=== PATIENT | male | born 1955 | race Caucasian/White ===

== ENCOUNTER 2019-01-16 10:10 | Inpatient (IN) | payer MEDICARE, SELFPAY ==
[2019-01-12 08:51] VITALS: BMI 25.0
[2019-01-16] VITALS (22 sets, daily range): BP systolic 110–150; BP diastolic 58–92; PULSE 68–92; RESP 7–18; TEMP 35.9–36.4; O2SAT 91–99; BMI 25.0
[2019-01-16] MEDS: LACTATED RINGERS 1,000 ML 42 ML IV ×2 (10:53→13:05)
--- NOTE | 2019-01-16 11:01 | PM.PREOP ---
Pre-operative Note Interval Note History & Physical reviewed/Exam performed by Physician: Yes Changes to H&P: No
[2019-01-16] MEDS: CEFAZOLIN 2 GM/100 ML FROZ.PIGGY IV ×2 (11:22→18:32)
--- NOTE | 2019-01-16 11:56 | SUR.OPER ---
Prone on spine table, head in foam head support, padded chest and pelvic supports, gel pad at knees, lower legs supported by pillows; nipples, genitalia and toes free of pressure, arms secured on foam padded arm boards at <90 degrees abduction. Tape over blanket at thigh secured to table.
[2019-01-16] MEDS: BUPIVACAINE LIPOSOME 266 MG/20 ML VIAL INJ (12:00)
[2019-01-16] MEDS: BUPIVACAINE 0.25% W/ EPI VIAL 30 ML INJ (12:01)
[2019-01-16] MEDS: ACETAMINOPHEN IV 1,000 MG/100 ML VIAL 400 MG IV (12:38)
--- NOTE | 2019-01-16 13:36 | PM.OP.1 ---
Operative Date/Time/Diagnoses Date of procedure: 01/16/19 Time of procedure: 11:36 Pre-op diagnosis: 1. L4-5, L5-S1 spinal stenosis 2. L4-5 spondylosis with radiculopathy Post-op diagnosis: same Procedure & Clinicians Procedure: 1. L4-5 Postero-lateral and posterior interbody fusion 2. L4-5 interbody cage placement. 3. L4-5 decompressive laminectomy with bilateral facetecomies 4. L4-5 Posterior non-segmental instrumentation 5. L5-S1 left hemilaminectomy 6. [place] of bone marrow from iliac crest 7. Utilization of microsurgical technique and operating microscope Same procedure as scheduled: Yes Indications: Patient has been having chronic back pain and worsening lumbar radiculopathy. Patient failed multiple conservative management with worsening pain weakness and numbness in her lower extremity. Patient has been having difficulty performing activity of daily living. After discussing risks benefits of treatment options, patient elected proceed with surgery. Surgeon: Juan Jose Monterroso Attorney At Law: Ana Morse'Brien Click Yes if Unassisted: No Anesthesia Type: General Operative Notes Closure Type: primary Specimen(s): none sent Prosthetic devices, grafts, tissues, transplants, or devices: Globus revolve screws, Rise cages Estimated Blood Loss (mL): 50 Blood products transfused: none Procedure in detail: Patient was seen in the preoperative area. Risks and benefits of the surgery was discussed with the patient. Informed consent was obtained from the patient and placed in the chart. Surgical site was marked. Patient was taken to the operative room. General anesthesia was administered. Prophylactic antibiotic was given to the patient less than 30 min before the incision was made. Patient was placed into a prone position on the Ariel table. Patient's back was then prepped and draped in the sterile fashion. Time-out was performed at this time. Using AP and lateral C-arm imaging the interval between L4-5 L5-S1 was identified and marked on patient's back. A 2 inch incision 2 in from midline was made on the left side first. The fascia was incised in line with skin incision. Globus MARS retractors was placed inside the incision and docked onto the L4 lamina. Using microsurgical technique and operating microscope, a L4 laminectomy and L4-5 facetectomy was performed using a Kerrison rongeur. The L4 and L5 neuroforamen was found to be significantly stenotic. One in 80% of the facet joint was removed in the process of decompression bilaterally which rendered the L4-5 level grossly unstable requiring a fusion procedure. The disc space at L4-5 was identified. And a total diskectomy was performed at L4-5 level. The endplates were decorticated using a rasp and shaver. The total diskectomy and decortication was performed at L4-5 level in order to to accomplish a L4-5 fusion. The local bone from the laminectomy and facetectomy was saved for local bone grafting. After the total diskectomy and decortication was completed, Globus viacell bone graft material was combined with local bone that was harvested earlier. At this time, a separate skin is incision was made over the iliac crest. A Jamshidi needle was inserted into the iliac crest through a separate skin incision. 5 cc of bone marrow aspiration was obtained through the separate skin incision using a Jamshidi needle from the iliac crest. The bone marrow aspiration was combined with local bone and the via cell bone grafting material. The bone grafting material was placed into the L4-5 interbody space along with a expandable cage. The cage was expanded to its maximum height using the torque limiting screwdriver. At this time the MARS retractor was redirected over the L5 lamina. Using microsurgical technique and operating microscope, a L5-S1 heminectomy was performed using the Kerrison rongeur. The ligamentum flavum was also resected at the side of the hemilaminectomy for further decompression of the epidural space. At this time a mirror image incision was made on the right side. The fascia was incised in line with the skin incision. Globus MARS retractor was inserted and docked onto the L4-5 posterolateral gutter. Using the power drill, posterior-lateral decortication was performed at L4-5 level until bleeding cortical bone was identified. The remaining bone grafting material was placed into the L4-5 posterior lateral gutter he order to accomplish posterolateral fusion at the L4-5 level. Using the double C-arm technique, pedicle screws were placed into the L4 and L5 pedicles bilaterally. This was done by placing the Jamshidi needle into the pedicles, then placing the guidewires over the Jamshidi needle, and finally placing the cannulated screws over the guidewires bilaterally. After the pedicle screws were placed, 2 titanium rods was locked into the heads of the pedicle screws using locking caps and torque limiting screwdriver. After all the hardware was placed, and confirmed with AP and lateral C-arm imaging, the wound was then irrigated with sterile normal saline and packed with Ray-Candelaria gauze for 3 min to accomplish hemostasis. After the gauze was removed the deep fascia was closed with #1 Vicryl suture. The subcutaneous layer was closed with 2-0 Vicryl. The skin was closed with skin judy. Patient tolerated the procedure well. There were no complications. Complications: none Condition: stable Disposition: PACU Plan for aftercare: Admit to inpatient hospital
--- NOTE | 2019-01-16 13:43 | DI.RAD.S_ITS ---
PROCEDURE: XR LUMBAR SPINE 2-3V INDICATIONS: L4-5 TLIF TECHNIQUE: 2 intraoperative fluoroscopic views of the lumbar spine were acquired. COMPARISON: None. FINDINGS: Intraoperative fluoroscopic images of lumbar spine shows transpedicular fusion at L4-5 level with intervertebral spacer placement at L4-5 level. Surgical screw is also noted anteriorly at S1 level. IMPRESSION: Fluoroscopy guidance was provided intraoperatively for transpedicular fusion at L4-5 level. Dictated by: Adin Tejada M.D. on 01/16/2019 at 14:02 Approved by: Adin Tejada M.D. on 01/16/2019 at 14:04
[2019-01-16] MEDS: fentaNYL 100 MCG/2 ML INJ IV ×2 (14:03→14:14)
[2019-01-16] MEDS: HYDROMORPHONE 2 MG INJ 0.5 MG IV ×7 (14:06→15:13)
--- NOTE | 2019-01-16 14:23 | SUR.PHASEI ---
Report given to MARIA ALEJANDRA Juares. Pt in stable condition, VSS. Transferred care of pt to MARIA ALEJANDRA Juares at this time.
[2019-01-16] MEDS: OXYCODONE IR 5 MG TABLET PO (15:01)
--- NOTE | 2019-01-16 16:00 | SUR.PHASEI ---
Pt transferred to room 218 via bed with all belongings. Pt's last vital signs stable with pain well controlled. Report given to MARIA ALEJANDRA Jordan prior to pt's transfer. MARIA ALEJANDRA Dupont assuming care of pt so report reviewed with her upon arrival to room 218. Assessed pt's dressing with and answered any questions for Kiah. I will contact pt's , Xi, to let her know that the pt has been transferred.
[2019-01-16] MEDS: HYDROMORPHONE 2 MG TABLET PO (16:55)
[2019-01-16] MEDS: SODIUM CHLORIDE 0.9% 1,000 ML 100 ML IV (16:55)
[2019-01-16] MEDS: hydrOXYzine pamoate 25 MG CAPSULE PO (16:55)
[2019-01-16] MEDS: OXYCODONE IR 10 MG TABLET PO (18:32)
--- NOTE | 2019-01-16 20:00 | PC.ADMIT ---
[address] Admission Note: The patient,Dipak Betts II,63 y/o, was given written information regarding hospital policies, unit procedures and contact persons. Patient's smoking status: Former smoker. Vital Signs - 8 hr 01/16/19 13:39 01/16/19 13:44 01/16/19 13:49 Temperature 97.4 F L Pulse Rate 79 80 92 H Respiratory Rate 7 L 9 L 9 L Blood Pressure 110/64 118/69 150/92 H Pulse Oximetry 91 91 97 01/16/19 13:54 01/16/19 13:59 01/16/19 14:04 Temperature Pulse Rate 92 H 91 H 83 Respiratory Rate 12 12 12 Blood Pressure 129/80 128/86 137/72 Pulse Oximetry 97 98 98 01/16/19 14:09 01/16/19 14:14 01/16/19 14:19 Temperature 96.8 F L Pulse Rate 87 84 84 Respiratory Rate 15 9 L 11 L Blood Pressure 132/83 131/77 132/82 Pulse Oximetry 98 98 98 01/16/19 14:34 01/16/19 14:49 01/16/19 15:04 Temperature 97.0 F L Pulse Rate 86 86 79 Respiratory Rate 13 12 11 L Blood Pressure 138/86 138/83 143/77 H Pulse Oximetry 95 94 95 01/16/19 15:19 01/16/19 15:34 01/16/19 15:43 Temperature Pulse Rate 68 82 71 Respiratory Rate 10 L 12 14 Blood Pressure 111/68 113/62 111/58 L Pulse Oximetry 97 99 99 01/16/19 15:50 01/16/19 16:20 01/16/19 16:50 Temperature 96.6 F L 97.5 F L 97.0 F L Pulse Rate 76 86 92 H Respiratory Rate 16 18 18 Blood Pressure 144/61 H 130/80 148/90 H Pulse Oximetry 99 96 97 01/16/19 17:50 Temperature 97.5 F L Pulse Rate 76 Respiratory Rate 17 Blood Pressure 120/62 Pulse Oximetry 96
--- NOTE | 2019-01-16 20:00 | PC.NURSE ---
evening shift note- Patient arrived to room from pacu via bed. Patient alert and oriented and hard of hearing. Admission questiobns completed, home medications reviewed, and physical assessment done. patient oriented to bed and bed controls, room, bathroom, lights, menu, phone, and call velazquez/tv remote. Safety measures in place. patient agrees to call for assistance as needed. will continue to monitor
[2019-01-16] MEDS: DOCUSATE 100 MG CAPSULE PO (20:33)
[2019-01-16] MEDS: SENNOSIDES 8.6 MG TABLET 17.2 MG PO (20:33)
[2019-01-16] MEDS: HYDROMORPHONE 1 MG INJ 0.5 MG IV (20:33)
[2019-01-17] MEDS: OXYCODONE IR 10 MG TABLET PO ×6 (00:01→20:54)
[2019-01-17 00:59] VITALS: BP 113/62; PULSE 81; RESP 15; TEMP 36.5; O2SAT 95
--- NOTE | 2019-01-17 01:12 | PC.NURSE ---
Assumed care of pt at 2130 on 01/16/19. Pt resting in bed during bedside hand-off. IVF infusing per orders. Pt reports analgesics have been effectively treating post-op pain. Drsg with reinforced on demetrice shift has no visual drainage since it was reinforced. CMS+. Refused scd's for the night. States I can't sleep with them on. Bed alarm on. Calling appropriately for needs.
[2019-01-17] MEDS: CEFAZOLIN 2 GM/100 ML FROZ.PIGGY IV (02:53)
[2019-01-17] MEDS: SODIUM CHLORIDE 0.9% 1,000 ML 100 ML IV (02:53)
[2019-01-17 05:15] VITALS: BP 115/73; PULSE 71; RESP 16; TEMP 36.5; O2SAT 99
[2019-01-17 05:31] LABS: Hematocrit 41.2 % (41-53); Hemoglobin 13.5 g/dL (13.5-17.5)
--- NOTE | 2019-01-17 08:18 | PM.PNPO.1 ---
Subjective Date Patient Seen: 01/17/19 Time Patient Seen: 08:18 Interval history: POD #1 status post L4-5 TLIF, and L5-S1 hemilaminectomy with Dr. Monterroso. Patient had some pain control issues last night stating most of his pain was in his low back. He notes a significant improvement on the numbness subsiding in his bilateral legs. He has been urinating well on his own. He has not been up with PT yet. Exam Vital Signs (past 8 hours): - 01/17/19 00:59 01/17/19 05:15 Temperature 97.7 F 97.7 F Pulse Rate 81 71 Respiratory Rate 15 16 Blood Pressure 113/62 115/73 Pulse Oximetry 95 99 Oxygen Delivery Method Room Air Oxygen Flow Rate 2 Narrative Exam Narrative: Patient lying in bed in no acute distress. He is alert and oriented x3. Calves are soft, compressible, nontender bilaterally. Sensation intact light touch throughout bilateral lower extremities. Pulses are symmetrical. He is able to actively dorsiflex plantar flex. Objective Labs Result Diagrams: 01/17/19 05:09 Labs: Laboratory Results - last 24 hr 01/17/19 05:09 Hgb 13.5 Hct 41.2 Assessment & Plan Post-op (1) S/P lumbar fusion: Current Visit: Yes Status: Acute Postoperative Procedures Operation Date: 01/16/19 07:45 Actual Procedures Side Surgeon p L5-S1 hemilaminectomy, L4-5 TLIF w/posterior instru Juan Jose Monterroso MD Patient will mobilize with PT today. He is instructed no excessive bending, lifting, or twisting. Continue current pain control. He has had difficulty taking Tylenol in the past but would like to try taking it today. Patient may discharge home today if he is mobilizing safely and pain adequately controlled. If he is not, then he will likely discharge home tomorrow. Quality VTE Deep Vein Thrombosis/Pulmonary Embolism Present on Admission: No
[2019-01-17 08:28] VITALS: BP 117/76; PULSE 89; RESP 16; TEMP 36.2; O2SAT 100
[2019-01-17] MEDS: DOCUSATE 100 MG CAPSULE PO (09:04)
--- NOTE | 2019-01-17 09:30 | PT.IIE ---
Current Diagnoses Other spondylosis with radiculopathy, lumbar region (01/16/19) Spinal stenosis, lumbar region without neurogenic claudication (01/16/19) Arthrodesis status (01/16/19) Surgery Performed Operation Date: 01/16/19 07:45 Actual Procedures p L5-S1 hemilaminectomy, L4-5 TLIF w/posterior annamaria Monterroso MD Surgical History (Last Updated 01/13/19 @ 08:10 by Sana Kimbrough RN) History of ankle surgery (Acute) History of lumbar fusion (Acute ~2004) Hx of tonsillectomy (Acute) S/P cervical spinal fusion (Acute ~2016) Medical History (Last Updated 01/13/19 @ 08:10 by Sana Kimbrough RN) Arthritis (Acute) Clavicle fracture (Acute) DDD (degenerative disc disease) (Acute) Depression (Acute) Fatty liver (Acute) Former smoker (Acute) Numbness and tingling (Acute) Pancreatic abnormality (Acute) Sciatica (Acute) Physical Therapy Inpatient Evaluation/Re-Eval M1 PT/OT-IP Prior Functional Status Start: 01/17/19 11:55 Freq: NEEDED Status: Active Protocol: Document 01/17/19 09:30 AB (Rec: 01/17/19 12:05 AB [id number]) Medical Review Prior Functional Status Medical History Reviewed Yes Communication able to make needs known Mobility and Gait stated that he is independent with all mobilities and ambulation without AD Social History Household Members spouse family Living Arrangements House Number of Floors (Floors) One Floor Number of Stairs To Enter/Railing? 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 PT-IP Current Condition Start: 01/17/19 11:55 Freq: NEEDED Status: Active Protocol: Document 01/17/19 09:30 AB (Rec: 01/17/19 12:05 AB [id number]) Physical Therapy Current Condition Current Condition Evaluation Date 01/17/19 Treatment Diagnosis s/p L4-5 fusion, L4-S1 L hemilami; difficulty in walking Onset Date 01/16/19 Precautions Lumbar Precautions Log Roll No Twisting Limit Bending Lifting Restriction of 10 lbs Gait Belt above Incisional Area M3 PT-IP Subjective Start: 01/17/19 11:55 Freq: NEEDED Status: Active Protocol: Document 01/17/19 09:30 AB (Rec: 01/17/19 12:05 [id number]) Subjective Physical Therapy Visit Type Type Initial Evaluation Visit Start Time 09:30 Visit Stop Time 10:03 Total Visit Minutes 33 Number of MARKETING COMMUNICATIONS COORDINATOR Visits 0 Physical Therapy Visit Comments Patient Comments pt agreeable to do PT Patient Goals to go home Therapy Pain Assessment Pain When Pain Assessed At Rest Pain Present Pain Present Pain Reported Location Lower Back Intensity 8 Scale Used Numeric (1 - 10) Pain Behaviors Facial Grimacing Guarding Pain Management Techniques Apply Cold Re-positioning Timing of Activity with Medications M4 PT-IP Mobility and Gait Start: 01/17/19 11:55 Freq: NEEDED Status: Active Protocol: Document 01/17/19 09:30 AB (Rec: 01/17/19 12:05 [id number]) PT-Bed Mobility Assessment Rolling Type of Rolling Log Rolling Level of Assist Standby Assistance Supine to Sit Supine to Sit Standby Assistance PT-Transfer Assessment Sit to and From Stand Sit to and from Stand Maximum Assistance 1 Person Assistance Equipment Transfer Assistive Device Gait Belt Front Wheeled Walker Orthotic/Prosthetic Devices or Brace: No Transfers Transfer Destination Chair Transfer Technique pt ambulated to the toilet using FWW Transfer Ability Level of Assist Moderate Assistance Maximum Assistance Gait Assessment Gait Gait Assistance Required: Moderate Assistance Maximum Assistance Distance (Feet) 12 Able to Maintain Weight Bearing Status Yes During Gait Assistive Devices Assistive Device Gait Belt Front Wheeled Walker Orthotic/Prosthetic Devices or Brace: No Gait Deviations General Gait Pattern Antalgic Decreased Stride Length Decreased Feet Clearance Factors Limiting Gait Function Factors Limiting Gait Function Decreased Activity Tolerance Decreased Strength Limited Range of Motion Pain Poor Balance Comments Gait Comments pt completed ambualtion using FWW ~ 12 ft requiring mod to max A and max cues. pt presents with usnteady gait and pt with c/o increase pain. pt pushing heavily on BLE for support through the FWW. PT-Balance Assessment Sitting Balance and Reactions Static Sitting Balance Ability Good Dynamic Sitting Balance Ability Fair Standing Balance and Reactions Static Standing Balance Ability Fair Dynamic Standing Balance Ability Poor Device Used FWW M5 PT-IP Objective Assessments Start: 01/17/19 11:55 Freq: NEEDED Status: Active Protocol: Document 01/17/19 09:30 AB (Rec: 01/17/19 12:05 AB [id number]) Orientation Orientation/Cognition Level of Alertness Alert Orientation Name Age Birthday Place Situation Gross Range of Motion Lower Extremity ROM Assessment Within Functional Limits Strength Lower Extremity Strength Assessment Bilaterally Impaired Hip 4-/5 Knee 4-/5 Ankle 4/5 Coordination Assessment Gross Coordination Gross Coordination WNL Muscle Tone Muscle Tone WNL Yes M6 PT-IP Treatment Start: 01/17/19 11:55 Freq: NEEDED Status: Active Protocol: Document 01/17/19 09:30 AB (Rec: 01/17/19 12:05 AB [id number]) Physical Therapy Treatment Education Education Provided Precautions Weight Bearing Status Post-Op Packet Safety M7 PT-IP Assessment and Plan Start: 01/17/19 11:55 Freq: NEEDED Status: Active Protocol: Document 01/17/19 09:30 AB (Rec: 01/17/19 12:05 AB [id number]) PT Summary Assessment and Plan Potential Rehabilitation Potential Fair Status of Condition at Evaluation Evolving Summary Impairments Pain ROM Strength Balance Coordination Sensation Tone Cognition Bed Mobility Transfers Gait Activity Tolerance Assessment Summary pt requiring mod to max A with mobility at this time. d/c plan depending on progress and if spouse will be able to safely assist pt at home. will continue to assess. Goals Bed Mobility Goal Standby Assistance Transfer Goal Standby Assistance Front Wheeled Walker Gait Goal Standby Assistance Front Wheel Walker Gait Distance 150 Other Goals up/down 2 steps without rails CGA Days to Meet Goals 5 Frequency of Treatment Frequency Of Treatment Twice a Day Treatment Plan Physical Therapy Treatment Plan Bed Mobility Training Transfer Training Gait Training Therapeutic Exercise Balance Retraining Post Op Education Discharge Planning Hot or Cold Pack Neuromuscular Re-ed Coordination Retraining Manual Therapy Recommendations To Nursing Amount of Assist Needed 1 Person Assist Discharge Recommendations PT Discharge Recommendations Home with Assistance SNF Rehab Other Discharge Recommendations SNF vs home with assistance
--- NOTE | 2019-01-17 09:56 | CM.DANOTE ---
Addendum entered by Debora Haas LPN 01/17/19 10:08: Met with pt as planned. He had just finished working with PT Chasidy and OT was now in process of beginning her eval. Pt at this point in needing a great deal of assist and it appears he will not be going home today. Pt does have some family help at home initially and his intent is to d/c to that setting. Had brief discussion re his options under Medicare IF this should be needed. Pt states he is confident he will be able to do fine at home but not today. He is aware that [facility] left the d/c date open. P: check in tomorrow and follow prn for needs. Original Note: Discharge Planning/Care Management DCP: assessment: case received, EMR reviewed and discussed case in team rounds. Pt is a 63 year old male who admitted yesterday for a planned spinal surgery: Surgeon: Dr. Monterroso. Payer: Medicare PCP: listed as [facility] PT and OT are ordered. Pt has not worked yet with either discipline and has not been out of bed yet. A d/c order is in from [facility] but review of same shows possible d/c Saturday or Saturday. P: will check in with pt for introduction of self and role. Will confer with therapists and follow prn for any d/c needs. CM Discharge Assessment Start: 01/17/19 09:55 Freq: Status: Active Protocol: Document 01/17/19 09:55 ITV (Rec: 01/17/19 09:56 ITV [id number]) Discharge Planning Assessment Advance Directives? No Advance Directives on File No History Provided By Patient Medical Record Prior Living Arrangements House Household Members spouse family Whiteboard Updated in Patient Room with Yes name and ext. # of Furnace Packer Review Status In Process Next Review Type Continued Stay Review
[2019-01-17 11:10] VITALS: BP 122/82; PULSE 104; RESP 18; TEMP 36.5; O2SAT 94
--- NOTE | 2019-01-17 13:06 | OT.IP.EVAL ---
Current Diagnoses Other spondylosis with radiculopathy, lumbar region (01/16/19) Spinal stenosis, lumbar region without neurogenic claudication (01/16/19) Arthrodesis status (01/16/19) Surgery Performed Operation Date: 01/16/19 07:45 Actual Procedures p L5-S1 hemilaminectomy, L4-5 TLIF w/posterior annamaria Monterroso MD Past Medical History (Last Updated 01/13/19 @ 08:10 by Sana Kimbrough, RN) Arthritis (Acute) Clavicle fracture (Acute) DDD (degenerative disc disease) (Acute) Depression (Acute) Fatty liver (Acute) Former smoker (Acute) Numbness and tingling (Acute) Pancreatic abnormality (Acute) Sciatica (Acute) Surgical History (Last Updated 01/13/19 @ 08:10 by Sana Kimbrough RN) History of ankle surgery (Acute) History of lumbar fusion (Acute ~2004) Hx of tonsillectomy (Acute) S/P cervical spinal fusion (Acute ~2015) Occupational Therapy Inpatient Evaluation/Re-Eval M1 PT/OT-IP Prior Functional Status Start: 01/17/19 12:41 Freq: NEEDED Status: Active Protocol: Document 01/17/19 12:41 [facility] (Rec: 01/17/19 13:06 [facility] [id number]) Medical Review Prior Functional Status Medical History Reviewed Yes Communication able to make needs known Mobility and Gait stated that he is independent with all mobilities and ambulation without AD Activities of Daily Living and IADL's Independent with increased time and did not use a device for any needs. 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 Pt now realizing that he will need to be off work longer. Social History Household Members spouse family Living Arrangements House Number of Floors (Floors) One Floor Number of Stairs To Enter/Railing? 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 OT-IP Current Condition Start: 01/17/19 12:41 Freq: Status: Active Protocol: Document 01/17/19 12:41 [facility] (Rec: 01/17/19 13:06 [facility] [id number]) Occupational Therapy Current Condition Current Condition Evaluation Date 01/17/19 Treatment Diagnosis Spinal Stenosis Diagnosis Onset Date 01/16/19 Post Operative Precautions Lumbar Precautions Log Roll No Twisting Limit Bending Lifting Restriction of 10 lbs Gait Belt above Incisional Area M3 OT- IP Subjective and Pain Start: 01/17/19 12:41 Freq: Status: Active Protocol: Document 01/17/19 12:41 [facility] (Rec: 01/17/19 13:06 [facility] [id number]) OT- Subjective Occupational Therapy Visit Type Type Initial Evaluation Visit Start Time 09:30 Visit Stop Time 10:23 Total Visit Minutes 53 Occupational Therapy Visit Comments Patient Comments Pt agreeable to get up for therapy. Patient/Caregiver Goals Pt wanting to go home and not open to going to skilled rehab at this time. OT Pain Assessment Pain When Pain Assessed During Mobility Pain Present Pain Present Pain Reported Location Lower Back Intensity 8 M4 OT- IP ADL's Start: 01/17/19 12:41 Freq: Status: Active Protocol: Document 01/17/19 12:41 [facility] (Rec: 01/17/19 13:06 [facility] [id number]) OT ADL-Dressing General Eval Lower Body Dressing Ability Maximum Assistance Areas Needing Assistance Socks Comments OT Dressing Comments Able to educated and show pt use of track rider and sock aid for LB dressing needs. Pt able to demonstrate good understanding and safety. Pt looking to get track rider and sock aid. Pt already has long handled sponge at home. Pt given long handled shoe horn. OT ADL-Bathing Comments OT Bathing Comments Pt would benefit from shower chair in the walk in shower at this time, in addition may have to use FWW in the shower as does not have any grab bars in the shower. Pt has HHSP. Pt states may have an elevated toilet seat at home. M5 OT- IP IADL's Start: 01/17/19 12:41 Freq: Status: Active Protocol: Document 01/17/19 12:41 [facility] (Rec: 01/17/19 13:06 [facility] [id number]) OT-Instrumental Activities of Daily Living Meal Preparation Meal Preparation Comments Pt's to assist. Forensic Toxicologist Forensic Toxicologist Comments Pt's to assist. M6 OT- IP Functional Cognition Start: 01/17/19 12:41 Freq: Status: Active Protocol: Document 01/17/19 12:41 [facility] (Rec: 01/17/19 13:06 [facility] [id number]) Cognitive Factors Limiting Selfcare Function Cognitive Ability Level of Alertness Alert Patient Orientation Name Place Situation Attention Span Ability Capable of Focused Attention Capable of Sustained Attention Ability to Follow Commands Able to Follow One Step Commands Memory Description Short Term Impaired Safety Awareness Decreased Recall of Precautions Decreased Ability to Apply Precautions Underestimates Need for Assistance Problem Solving Ability Needs Assist to Identify Solutions Cognitive Comments Cognitive Assessment Comments Pt able to recall 2/3 back precautions. Pt a bit impulsive and needing step by step cues for technique from sit to stand safety. When asked what he would do in case of needing to use the bathroom, pt replied, just stand and use the urinal. Reminded pt to use call light and at this time unable to stand on his own. Chair alarm placed on pt. OT- Vision and Hearing OT- Hearing Assessment OT- Hearing Assessment Use of Hearing Aids M7 OT- IP Mobility and Balance Start: 01/17/19 12:41 Freq: Status: Active Protocol: Document 01/17/19 12:41 [facility] (Rec: 01/17/19 13:06 [facility] [id number]) OT- Bed Mobility Assessment Rolling Type of Rolling Roll to Right Level of Assistance Standby Assistance Supine to Sit Supine to Sit Assist Standby Assistance 1 Person Assistance OT-Transfer Assessment Sit to and From Stand Sit to and from Stand Maximum Assistance 1 Person Assistance Transfers Transfer Ability Moderate Assistance Maximum Assistance 1 Person Assistance Technique Transfer Destination Chair Transfer Technique Stand Step Pivot Devices Transfer Assistive Devices Gait Belt Front Wheeled Walker Comments Mobility Comments Pt needs vc to straighten his legs while standing and then to buckle and needs heavy use of BUE on FWW. OT- Balance Assessment Sitting Balance and Reactions Static Sitting Balance Ability Normal Dynamic Sitting Balance Ability Good Standing Balance and Reactions Static Standing Balance Ability Poor M8 OT- IP Objective Assessments Start: 01/17/19 12:41 Freq: Status: Active Protocol: Document 01/17/19 12:41 [facility] (Rec: 01/17/19 13:06 [facility] [id number]) OT Gross Range of Motion Upper Extremity Range of Motion Assessment Within Functional Limits OT Strength Comments Strength Comments WFL M9 OT- IP Assessment and Plan Start: 01/17/19 12:41 Freq: Status: Active Protocol: Document 01/17/19 12:41 [facility] (Rec: 01/17/19 13:06 [facility] [id number]) OT Summary Assessment and Plan Potential Rehabilitation Potential Good Analytic Complexity at Evaluation Low Summary OT Impairments Pain Balance Functional Cognition Functional Mobility Grooming Dressing Toileting Bathing Toilet Transfers Shower Transfers Progress Towards Goals Slow Progress due to Pain Slow Progress due to Activity Tolerance Slow Progress due to Cognition Assessment Summary Pt low complexity and main barrier is steps, pain control , and now needing extensive assist x 2 for bed mobility and ADL needs. Pending progress and caregiver training pt may need short skilled rehab versus home with 's assistance. In addtion pt states brother in law to assist a few days. Goals Grooming Goal Standby Assistance Dressing Goal Minimal Assistance Toileting Goal Standby Assistance Bathing Goal Minimal Assistance Toilet Transfer Goal Contact Guard Assistance Shower Transfer Goal Minimal Assistance Patient/Caregiver Education Goal Demonstrate Post-Op Precautions Caregiver Independent Assisting Patient Days to Meet Goals 4 Frequency of Treatment Frequency Of Treatment Once a Day Treatment Plan OT Treatment Plan ADL Training Functional Cognition Training Functional Mobility Patient/Family Education Discharge Planning Other Treatment Recommendations and Next Stand at sink with FWW for Treatment Focus grooming. Discharge Recommendations OT Discharge Recommendations Home with Assistance SNF Rehab Other Discharge Recommendations Pending progress and caregiver training, SNF versus home with assist Home Equipment Needs Shower chair, track rider, sock aid, RTS
--- NOTE | 2019-01-17 14:09 | PT.IPTN ---
Current Diagnoses Other spondylosis with radiculopathy, lumbar region (01/16/19) Spinal stenosis, lumbar region without neurogenic claudication (01/16/19) Arthrodesis status (01/16/19) Surgery Performed Operation Date: 01/16/19 07:45 Actual Procedures p L5-S1 hemilaminectomy, L4-5 TLIF w/posterior annamaria Monterroso MD Physical Therapy Treatment Note M2 PT-IP Current Condition Start: 01/17/19 11:55 Freq: NEEDED Status: Active Protocol: Document 01/17/19 09:30 [facility] (Rec: 01/17/19 12:05 AB [id number]) Physical Therapy Current Condition Current Condition Evaluation Date 01/17/19 Treatment Diagnosis s/p L4-5 fusion, L4-S1 L hemilami; difficulty in walking Onset Date 01/16/19 Precautions Lumbar Precautions Log Roll No Twisting Limit Bending Lifting Restriction of 10 lbs Gait Belt above Incisional Area M3 PT-IP Subjective Start: 01/17/19 11:55 Freq: NEEDED Status: Active Protocol: Document 01/17/19 14:09 [facility] (Rec: 01/17/19 15:15 AB [id number]) Subjective Physical Therapy Visit Type Type Treatment Note Visit Start Time 14:09 Visit Stop Time 14:33 Total Visit Minutes 24 Number of NUB CARD TENDER Visits 0 Physical Therapy Visit Comments Patient Comments pt agreeable to do PT Therapy Pain Assessment Pain When Pain Assessed At Rest Pain Present Pain Present Pain Reported Location Lower Back Intensity 7 Scale Used Numeric (1 - 10) Pain Management Techniques Re-positioning Timing of Activity with Medications M4 PT-IP Mobility and Gait Start: 01/17/19 11:55 Freq: NEEDED Status: Active Protocol: Document 01/17/19 14:09 AB (Rec: 01/17/19 15:15 AB [id number]) PT-Bed Mobility Assessment Rolling Type of Rolling Log Rolling Level of Assist Standby Assistance Supine to Sit Supine to Sit Standby Assistance Sit to Supine Sit to Supine Standby Assistance Scooting Scooting to Edge of Bed Standby Assistance Scooting Up and Down in Bed Standby Assistance PT-Transfer Assessment Sit to and From Stand Sit to and from Stand Contact Guard Assistance Equipment Transfer Assistive Device Gait Belt Front Wheeled Walker Orthotic/Prosthetic Devices or Brace: No Gait Assessment Gait Gait Assistance Required: Contact Guard Assist Distance (Feet) 100 Able to Maintain Weight Bearing Status Yes During Gait Assistive Devices Assistive Device Gait Belt Front Wheeled Walker Orthotic/Prosthetic Devices or Brace: No Gait Deviations General Gait Pattern Antalgic Decreased Stride Length Decreased Feet Clearance Factors Limiting Gait Function Factors Limiting Gait Function Decreased Activity Tolerance Decreased Strength Limited Range of Motion Pain Poor Balance Comments Gait Comments pt completed ambulation using FWW CGA 100 ft. cues for upright posture and techniques . pt has increased antalgic gait towards end of ambulation . M5 PT-IP Objective Assessments Start: 01/17/19 11:55 Freq: NEEDED Status: Active Protocol: Document 01/17/19 09:30 [facility] (Rec: 01/17/19 12:05 AB [id number]) Orientation Orientation/Cognition Level of Alertness Alert Orientation Name Age Birthday Place Situation Gross Range of Motion Lower Extremity ROM Assessment Within Functional Limits Strength Lower Extremity Strength Assessment Bilaterally Impaired Hip 4-/5 Knee 4-/5 Ankle 4/5 Coordination Assessment Gross Coordination Gross Coordination WNL Muscle Tone Muscle Tone WNL Yes M6 PT-IP Treatment Start: 01/17/19 11:55 Freq: NEEDED Status: Active Protocol: Document 01/17/19 14:09 AB (Rec: 01/17/19 15:15 AB [id number]) Physical Therapy Treatment Education Education Provided Precautions Safety M7 PT-IP Assessment and Plan Start: 01/17/19 11:55 Freq: NEEDED Status: Active Protocol: Document 01/17/19 14:09 AB (Rec: 01/17/19 15:15 AB [id number]) PT Summary Assessment and Plan Potential Rehabilitation Potential Good Summary Impairments Pain ROM Strength Balance Bed Mobility Transfers Gait Activity Tolerance Progress Towards Goals Progressing Toward Goals Assessment Summary pt doing better this afternoon and able to ambulate in hallway using FWW with CGA. caregiver training set up at 930am tomorrow with spouse. will also complete stair climbing training prior to d/c . Goals Bed Mobility Goal Standby Assistance Transfer Goal Standby Assistance Front Wheeled Walker Gait Goal Standby Assistance Front Wheel Walker Gait Distance 150 Other Goals up/down 2 steps without rails CGA Days to Meet Goals 5 Frequency of Treatment Frequency Of Treatment Twice a Day Treatment Plan Physical Therapy Treatment Plan Bed Mobility Training Transfer Training Gait Training Therapeutic Exercise Balance Retraining Post Op Education Discharge Planning Hot or Cold Pack Neuromuscular Re-ed Coordination Retraining Manual Therapy Other Recommendations and Next Treatment caregiver training 930 am sun Focus 01/18; stair climbing training Recommendations To Nursing Amount of Assist Needed 1 Person Assist Discharge Recommendations PT Discharge Recommendations Home with Assistance
[2019-01-17 16:34] VITALS: BP 138/80; PULSE 97; RESP 15; TEMP 36.7; O2SAT 98
[2019-01-17] MEDS: ACETAMINOPHEN 325 MG TABLET 650 MG PO (18:21)
--- NOTE | 2019-01-17 20:14 | PC.NURSE ---
Pt up to chair, rates pain 6/10, and reports 6 is tolerable. 98%RA, LS clear. Bt+, denies nausea. LFA SL. Indep to BRP. Changed lower back drsg to a coversite, incisions well approximated with 8 and 9 judy, CDI, no s/ss infection, afebrile 98.1. Uses call to make needs known. Plan to DC tomorrow, Rx's in chart.
[2019-01-17 20:41] VITALS: BP 116/57; PULSE 93; RESP 19; TEMP 36.9; O2SAT 97
[2019-01-17] MEDS: hydrOXYzine pamoate 25 MG CAPSULE PO (20:55)
[2019-01-18 00:24] VITALS: BP 124/71; PULSE 80; RESP 16; TEMP 37.2; O2SAT 96
[2019-01-18] MEDS: OXYCODONE IR 10 MG TABLET PO ×3 (01:16→08:27)
--- NOTE | 2019-01-18 02:13 | PC.NURSE ---
Assumed care of pt at 2300 on 01/17. Pt sleeping during bedside hand-off. Awakens to voice for assessment. Drsg c/d/i. Changed on demetrice shift 01/17. CMS+, able to wiggle toes, denies numbness/tingling. Refused foot scd's. VTE risks advised. Enc cough/deep breathe and I.S. 10x/hr while awake. Pt aware of spinal precautions of no bending, lifting, twisting. Able to reposition independently in bed. Reports oxycodone has been effective for post-op pain. Using urinal in bed. Calling appropriately for needs. Bed alarm on.
[2019-01-18 04:50] VITALS: BP 102/62; PULSE 79; RESP 15; TEMP 36.9; O2SAT 99
[2019-01-18 08:20] VITALS: BP 154/84; PULSE 88; RESP 22; TEMP 36.2; O2SAT 98
[2019-01-18] MEDS: SODIUM CHLORIDE 0.9% FLUSH 10 ML IV (08:28)
--- NOTE | 2019-01-18 10:11 | PT.IPTN ---
Current Diagnoses Other spondylosis with radiculopathy, lumbar region (01/16/19) Spinal stenosis, lumbar region without neurogenic claudication (01/16/19) Arthrodesis status (01/16/19) Surgery Performed Operation Date: 01/16/19 07:45 Actual Procedures p L5-S1 hemilaminectomy, L4-5 TLIF w/posterior annamaria Monterroso MD Physical Therapy Treatment Note M2 PT-IP Current Condition Start: 01/17/19 11:55 Freq: NEEDED Status: Active Protocol: Document 01/17/19 09:30 AB (Rec: 01/17/19 12:05 AB [id number]) Physical Therapy Current Condition Current Condition Evaluation Date 01/17/19 Treatment Diagnosis s/p L4-5 fusion, L4-S1 L hemilami; difficulty in walking Onset Date 01/16/19 Precautions Lumbar Precautions Log Roll No Twisting Limit Bending Lifting Restriction of 10 lbs Gait Belt above Incisional Area M3 PT-IP Subjective Start: 01/17/19 11:55 Freq: NEEDED Status: Active Protocol: Document 01/18/19 09:35 [facility] (Rec: 01/18/19 10:11 [facility] [id number]) Subjective Physical Therapy Visit Type Type Treatment Note Visit Start Time 09:35 Visit Stop Time 10:00 Total Visit Minutes 25 Number of APPRAISAL SPECIALIST Visits 1 Physical Therapy Visit Comments Patient Comments Pt wanting to d/c home today and agreed to trial stairs, present for CG training. Patient Goals to go home Therapy Pain Assessment Pain When Pain Assessed At Rest Pain Present Pain Present Pain Reported Location Left Hip Intensity 9 Scale Used Numeric (1 - 10) Pain Management Techniques Apply Cold Modification of Treatment Timing of Activity with Medications M4 PT-IP Mobility and Gait Start: 01/17/19 11:55 Freq: NEEDED Status: Active Protocol: Document 01/18/19 09:35 [facility] (Rec: 01/18/19 10:11 [facility] [id number]) PT-Bed Mobility Assessment Rolling Type of Rolling Log Rolling Level of Assist Standby Assistance Supine to Sit Supine to Sit Standby Assistance Scooting Scooting to Edge of Bed Standby Assistance PT-Transfer Assessment Sit to and From Stand Sit to and from Stand Contact Guard Assistance Equipment Transfer Assistive Device Gait Belt Front Wheeled Walker Orthotic/Prosthetic Devices or Brace: No Transfers Transfer Destination Wheelchair Transfer Ability Level of Assist Contact Guard Assistance Comments Mobility Comments Pt with good log roll sequencing and scooting to EOB SBA. Gait Assessment Gait Gait Assistance Required: Standby Assistance Distance (Feet) 125 Able to Maintain Weight Bearing Status Yes During Gait Assistive Devices Assistive Device Gait Belt Front Wheeled Walker Orthotic/Prosthetic Devices or Brace: No Gait Deviations General Gait Pattern Antalgic Decreased Stride Length Decreased Feet Clearance Factors Limiting Gait Function Factors Limiting Gait Function Decreased Activity Tolerance Decreased Strength Limited Range of Motion Pain Comments Gait Comments Pt able to ambulate ~125ft before needing to sit in WC but stated walking felt better than laying in bed. Stair Climbing Assessment Evaluation Level of Assist On Stairs Contact Guard Assistance Devices Stair Climbing Assistive Devices Front Wheel Walker Technique/Endurance Stair Climbing Direction Ascend and Descend Stair Climbing Technique Step to Step Number of Steps Climbed 3 Query Text: Stair Climbing Set # Repetitions (reps) 1 Comments Stair Climbing Comments Pt required cues for sequencing step to step stair climbing. M5 PT-IP Objective Assessments Start: 01/17/19 11:55 Freq: NEEDED Status: Active Protocol: Document 01/17/19 09:30 AB (Rec: 01/17/19 12:05 AB [id number]) Orientation Orientation/Cognition Level of Alertness Alert Orientation Name Age Birthday Place Situation Gross Range of Motion Lower Extremity ROM Assessment Within Functional Limits Strength Lower Extremity Strength Assessment Bilaterally Impaired Hip 4-/5 Knee 4-/5 Ankle 4/5 Coordination Assessment Gross Coordination Gross Coordination WNL Muscle Tone Muscle Tone WNL Yes M6 PT-IP Treatment Start: 01/17/19 11:55 Freq: NEEDED Status: Active Protocol: Document 01/17/19 14:09 AB (Rec: 01/17/19 15:15 AB [id number]) Physical Therapy Treatment Education Education Provided Precautions Safety M7 PT-IP Assessment and Plan Start: 01/17/19 11:55 Freq: NEEDED Status: Active Protocol: Document 01/18/19 09:35 [facility] (Rec: 01/18/19 10:11 [facility] [id number]) PT Summary Assessment and Plan Summary Impairments Pain ROM Strength Balance Bed Mobility Transfers Gait Activity Tolerance Progress Towards Goals Progressing Toward Goals Assessment Summary Pt with increased pain this morning but was eager to trial stairs with present. Pt able to navigate stairs using FWW and CGA. Pt recalled 3/3 precautions and demonstrates them with all mobility. Pt with good log roll sequencing and controlled sit to stand. Goals Bed Mobility Goal Standby Assistance Transfer Goal Standby Assistance Front Wheeled Walker Gait Goal Standby Assistance Front Wheel Walker Gait Distance 150 Other Goals up/down 2 steps without rails CGA Days to Meet Goals 5 Frequency of Treatment Frequency Of Treatment Twice a Day Treatment Plan Physical Therapy Treatment Plan Bed Mobility Training Transfer Training Gait Training Therapeutic Exercise Balance Retraining Post Op Education Discharge Planning Hot or Cold Pack Neuromuscular Re-ed Coordination Retraining Manual Therapy Recommendations To Nursing Amount of Assist Needed 1 Person Assist Discharge Recommendations PT Discharge Recommendations Home with Assistance
[2019-01-18] MEDS: hydrOXYzine pamoate 25 MG CAPSULE PO (10:18)
--- NOTE | 2019-01-18 10:42 | PM.PNPO.1 ---
Subjective Date Patient Seen: 01/18/19 Time Patient Seen: 10:11 Interval history: Patient is status post TLIF. Patient is doing very well this morning. Slight increase in pain but has been getting around quite well with physical therapy and is ready to go home. Exam Vital Signs (past 8 hours): - 01/18/19 04:50 01/18/19 08:20 Temperature 98.4 F 97.2 F L Pulse Rate 79 88 Respiratory Rate 15 22 Blood Pressure 102/62 154/84 H Pulse Oximetry 99 98 Oxygen Delivery Method Room Air Oxygen Flow Rate 0 Narrative Exam Narrative: Patient is alert and oriented x3. Some pain issues but tolerable. Patient is getting up quite well with physical therapy. Positive dorsiflexion and plantar flexion of the toes and ankles. Sensations intact. Palpable pedal pulses. Nontender to palpation of the posterior aspect of the calf. Dressing is clear, dry, intact. Objective Labs Result Diagrams: 01/17/19 05:09 Assessment & Plan Post-op Postoperative Procedures Operation Date: 01/16/19 07:45 Actual Procedures Side Surgeon p L5-S1 hemilaminectomy, L4-5 TLIF w/posterior instru Juan Jose Monterroso MD Postoperative day: 2 Postoperative status: doing well Postoperative status narrative: Patient doing well after surgery. Patient is ready to go home. Patient will be discharged home today. Postoperative plan: see orders and discharge Time Spent With Patient less than 15 minutes Quality VTE Deep Vein Thrombosis/Pulmonary Embolism Present on Admission: No
--- NOTE | 2019-01-18 10:50 | PC.NURSE ---
Day Shift- Reviewed discharge summary with pt and his at bedside. Reviewed restricted mobility, lifting limits, S/S of infection, pain management and use of ice pack. Pt's will call Dr. Monterroso's office on Saturday to make/confirm follow up appointment. Reviewed preventing constipation. No voiced concerns. Prescriptions given to pt to fill at pharmacy of their choice. Pt left unit via wheelchair with USER EXPERIENCE DEVELOPER, pt's present to drive pt home. Pt left uni at 1050 in no distress, pain remains elevated, prn vistaril given for pain management, spasms. Pt wanted to be discharged at this time, eager to get home.
--- NOTE | 2019-01-18 11:46 | CM.DPC ---
DCP: continued: Pt was able to d/c to home today as per his desire. PT Baron noted in Team Rounds that he was doing well for that setting. JAVAD # 2: pt remained aware of the information in the document and was eager to return to his home.
--- NOTE | 2019-01-29 09:17 | PM.DS.1 ---
History of Present Illness Date Patient Seen: 01/29/19 Time Patient Seen: 09:17 Chief complaint: [id number] Narrative: Hospital day 3, postop day 2 following L4-5 laminectomy, TLIF, cage, posterior screw fixation and L5-S1 left hemilaminectomy by Dr. Monterroso. Patient remained stable postoperatively. Progressed well with physical therapy. He was doing much better and desiring to go home. Discharge Providers Date of admission: 01/16/19 10:10 Discharge Date: 01/18/19 Primary care physician: Marisol Hunt PA-C Consults: 01/16/19 16:11 Consult to Occupational Therapy Evaluate & Treat Comment: Physician Instructions: Evaluate and treat Consult to Physical Therapy Evaluate & Treat Comment: Physician Instructions: Evaluate and Treat Discharge provider: Lit Bowles PA-C Summary Discharge Diagnosis: Status post L4-5 laminectomy, TLIF, cage, posterior screw fixation, L5-S1 left hemilaminectomy Hospital Course: patient brought to hospital on 01/16/2019 for above-noted surgery. He remained stable postoperatively. Progressed well with physical therapy. Ready for discharge home on postop day 2. Status at Discharge Cognitive/behavioral status at discharge: oriented Functional status at discharge: uses cane/walker Overall status at discharge: patient is progressing back to baseline Time Spent with Patient Less than 30 minutes Exam Vital Signs (past 8 hours): Oxygen Delivery Method Room Air Oxygen Flow Rate 0 Objective Labs Result Diagrams: 01/17/19 05:09 Discharge Plan Discharge Plan Patient Disposition: Home Discharge comment: Possible DC sat or Saturday. Coversite dressing on prior to discharge Discharge Med Rec/Prescriptions Prescriptions: New docusate sodium 100 mg Capsule 100 mg PO BID Qty: 60 RF: 0 hydroxyzine pamoate 25 mg Capsule 25 mg PO Q6-8H PRN (Reason: muscle spasm) Qty: 60 RF: 0 oxycodone 5 mg capsule 5 mg PO Q4-6H PRN (Reason: pain) Qty: 60 RF: 0 Discontinued hydromorphone 2 mg Tablet 2 mg PO TID PRN (Reason: pain) RF: 0 Follow up/Referrals: Juan Jose Monterroso MD [Physician] - (Follow up in 10-14 days with [facility]) Marisol Hunt PA-C [Primary Care Provider] - Provider Discharge Instructions Diet: Diet as Tolerated Activity: No excessive bending, lifting, or twisting. Cold/Heat Therapy: as needed Skin/Wound/Dressing Care Report to your healthcare provider any signs of infection, such as:: chills, fever and increased pain Dressing: Leave coversite dressing on until appointment Visit Report/Discharge Packet Instructions: How to Prevent Falls, DI for Postoperative Pain, DI for Transforaminal Lumbar Interbody Fusion Discharge Data Primary Care Provider: Marisol Hunt Attending Provider: Juan Jose Monterroso Admit Date/Time: 01/16/19 10:10 Discharges patient from system. Discharge Date/Time: 01/18/19 10:50 Quality VTE Deep Vein Thrombosis/Pulmonary Embolism Present on Admission: No
== END 2019-01-18 10:50 | disposition home or self-care (01) | DRG 455 ==
PROVIDERS: Admitting Provider Orthopaedic Surgery Orthopaedic Surgery of the Spine; PCP Physician Assistant; Visit Provider Orthopaedic Surgery Orthopaedic Surgery of the Spine
PROC: 0SG00AJ Fusion of Lumbar Vertebral Joint with Interbody Fusion Device, Posterior Approach, Anterior Column, Open Approach (ICD-10-PCS; principal; 2019-01-16 07:45)
DX: M48.061 Spinal stenosis, lumbar region without neurogenic claudication (principal); M47.26 Other spondylosis with radiculopathy, lumbar region; M48.07 Spinal stenosis, lumbosacral region; F32.9 Major depressive disorder, single episode, unspecified; Z87.891 Personal history of nicotine dependence
CPT/HCPCS: 36415; 72100; 76000; 85014; 85018; 97116; 97162; 97165; 97530; 97535; C1776; C9290; J0131; J0330; J0690; J1100; J1170; J2250; J2405; J2704; J3010